=== PATIENT | male | born 1945 | race Caucasian/White ===

== ENCOUNTER 2024-01-08 14:23 | Emergency (ER) | payer MEDICARE, OTHER ==
[2024-01-08] MEDS: Morphine 2 MG/ML SYRINGE IVPUSH ONE ×4 (14:48→17:58)
[2024-01-08 16:13] LABS: BASOPHILS ABSOLUTE AUTO 0.11 K/uL (0.00-0.10); BASOPHILS PERCENT AUTO 0.7 % (0.1-1.3); EOSINOPHILS ABSOLUTE AUTO 0.64 K/uL (0.00-0.40); EOSINOPHILS PERCENT AUTO 4.3 % (0.0-5.4); HEMATOCRIT 44.2 % (38.4-49.7); HEMOGLOBIN 15.7 g/dL (12.9-16.9); IMMATURE GRAN ABSOLUTE AUTO 0.36 K/uL (0.00-0.23); IMMATURE GRAN PERCENT AUTO 2.4 % (0.0-0.7); LYMPHOCYTES ABSOLUTE AUTO 4.03 K/uL (0.8-3.3); LYMPHOCYTES PERCENT AUTO 26.9 % (11.4-47.7); MEAN CORPUSCULAR HEMOGLOBIN 30.6 pg (31.6-35.5); MEAN CORPUSCULAR HGB CONC 35.5 g/dL (31.6-35.5); MEAN CORPUSCULAR VOLUME 86.2 fL (81.4-99.0); MONOCYTES ABSOLUTE AUTO 1.13 K/uL (0.20-0.90); MONOCYTES PERCENT AUTO 7.6 % (3.3-12.6); NEUTROPHILS ABSOLUTE AUTO 8.69 K/uL (1.0-7.6); NEUTROPHILS PERCENT AUTO 58.1 % (40.0-78.1); PLATELET COUNT,PLT 289 K/uL (130-375); RED BLOOD CELL COUNT 5.13 M/uL (4.14-5.76)
[2024-01-08 16:19] LABS: ANION GAP 16.1 mmol/L (5.0-14.0); CREATININE 1.8 mg/dL (0.8-1.3); EST CRCL DRUG DOSING (CG) 37.12 mL/min; POTASSIUM,K 4.1 mmol/L (3.6-5.2)
[2024-01-08] MEDS: fentaNYL 50 MCG/ML SDV IVPUSH ONE (18:46)
[2024-01-08] MEDS: HYDROmorphone 1 MG/ML Syringe IVPUSH ONE ×2 (19:29→20:23)
[2024-01-08] MEDS: Ondansetron 4 MG/2 ML SDV IVPUSH ONE (19:36)
== END 2024-01-08 20:33 ==
LOC: EDBD 14:23 → JP.ED 14:23
DX: S12.001A Unspecified nondisplaced fracture of first cervical vertebra, initial encounter for closed fracture (principal); Z79.899 Other long term (current) drug therapy; W01.0XXA Fall on same level from slipping, tripping and stumbling without subsequent striking against object, initial encounter; Y93.01 Activity, walking, marching and hiking
CPT/HCPCS: 36415; 70450; 70486; 71250; 72125; 73030; 80048; 85025; 96374; 96375; 96376; 99284; 99285; J1170; J2270; J2405; J3010